=== PATIENT | female | born 1950 | race Caucasian/White ===

== ENCOUNTER 2024-01-19 14:07 | Emergency (ER) | payer MEDICARE, BC, SELFPAY ==
[2024-01-19] VITALS (8 sets, daily range): BP systolic 115–146; BP diastolic 63–84; BMI 33.9
--- NOTE | 2024-01-19 14:37 | ED.GENMED ---
History of Present Illness
<Vidhi Lua, JACK WINDER - Last Filed: 01/19/24 18:23>
General
Chief Complaint: Fever
Source: patient
Exam Limitations: none
Time Seen by Provider: 01/19/24 14:37
Nursing documentation reviewed up to this point in time: agreed with
Travel History
Have you had any contact with someone who has COVID-19?: No
Do you have any symptoms of coronavirus? Fever > 100 degrees, chills, cough, shortness of breath, sore throat, loss of taste or smell, muscle aches, or headache?: Yes
Symptoms:: see triage
History of Present Illness
History of Present Illness:
73-year-old female with history of HTN presents stating she has a cough, headache, body aches, fever, fatigue, back and joint pain, nausea but no vomiting, temperature between 90 9 AM 101 for past 3 days. She denies diarrhea. She has a roommate
that was sick for 3 days last week but tested negative for COVID. Patient tested negative for COVID 2 days ago.
Past History
<Vidhi Lua, JACK WINDER - Last Filed: 01/19/24 18:23>
Past History
ED Past Medical History: HTN, Hypercholesterolemia, Psychiatric (Anxiety) and Other (ITP, receives Nplate injection weekly)
ED Past Surgical History: Appendectomy, Gynecological and Orthopedic
Social History
Tobacco: Non-smoker
Alcohol: None
Drug: None
Personal:
Living: with roommate
Family History
Family History: CAD
Review of Systems
<Vidhi Lua, JACK WINDER - Last Filed: 01/19/24 18:23>
Review of Systems
Allergies reviewed?: Yes
All Other Systems: ROS reviewed and negative except as documented in HPI and ROS
Constitutional: Reports fever and fatigue
EENT: Denies sore throat
Respiratory: Reports cough
Cardiac: Denies chest pain
ABD/GI: Reports nausea; Denies abdominal pain, vomiting or diarrhea
: Reports incontinence (with coughing spells); Denies dysuria
Musculoskeletal: Reports other (general body aches); Denies edema
Skin: Reports no symptoms
Neurological: Reports dizzy and headache
Phy Exam
<Vidhi Lua, JACK WINDER - Last Filed: 01/19/24 18:23>
Physical Exam
Physical Exam:
GENERAL: No acute distress. A&Ox3.
CONSTITUTIONAL: Temperature 100.3
EYES: PERRL, conjunctivae normal
Neck: Supple
ENMT: moist mucus membranes, Pharynx nl
RESPIRATORY: Regular respirations, nonlabored, lungs with crackles both bases
CARDIOVASCULAR: Regular rate and rhythm, no murmurs, no rubs.
GI: Soft, nontender, normal BS
MUSCULOSKELETAL: Moves with ease. Well perfused.
SKIN: Warm, dry, pink
PSYCH: Normal mood and affect. Well kept, interactive and appropriate
NEUROLOGIC: Awake, alert and oriented. No focal neurological deficits
Course
<Vidhi Lua, JACK WINDER - Last Filed: 01/19/24 18:23>
Orders/Labs/Results
Orders:
Orders
01/19/24 14:39
COVID-19 Antigen Urgent
Source: Nasal Swab
Complete Blood Count/With Diff Urgent
Comprehensive Metabolic Panel Urgent
Influenza A+B Rapid Molecular Urgent
FELA Source: Nasal Swab
Specimen Description:
01/19/24 14:42
0.9% Sodium Chloride 1000 ml [Nss] 1,000 ml IV BOLUS
01/19/24 14:54
Acetaminophen [Tylenol] 1,000 mg PO NOW STA
01/19/24 15:44
CR Chest - 2 Views Urgent
Comment:
Reason For Exam: cough fever, neg covid and flu
01/19/24 16:06
Add On- LAB Urgent
Tests Added?: mono test
01/19/24 16:16
Monotest Routine
Comment: add-on
01/19/24 16:36
Urinalysis Reflex To Culture Urgent
Date Specimen was Collected: 01/19/24
Time Specimen was Collected: 16:34
Abnormal Lab Results
01/19/24 01/19/24
14:39 16:36
WBC 3.6 L 10^3/uL
(4.8-10.8)
MPV 10.5 H fL
(7.4-10.4)
Absolute Lymphs (auto) 0.8 L 10^3/uL
(1.2-3.4)
Monocytes % 10.8 H %
(1.7-9.3)
Sodium 132 L mmol/L
(135-145)
Glucose 104 H mg/dl
(70-99)
Calcium 8.3 L mg/dl
(8.4-10.2)
AST 37 H U/L
(14-36)
Urine Ketones 1+ A
(Negative)
01/19/24 14:39
01/19/24 14:39
Vital Signs
Initial and Last Documented VS:
Initial Vital Signs
Temp Pulse Resp BP Pulse Ox
100.3 F 125 18 118/84 96
01/19/24 14:15 01/19/24 14:15 01/19/24 14:15 01/19/24 14:15 01/19/24 14:15
Last Documented Vital Signs
Temp Pulse Resp BP Pulse Ox
100.5 F H 97 22 115/66 95
01/19/24 14:56 01/19/24 17:45 01/19/24 17:45 01/19/24 17:47 01/19/24 17:47
<Steph Valles MD - Last Filed: 01/19/24 16:05>
Orders/Labs/Results
Orders:
Orders
01/19/24 14:39
COVID-19 Antigen Urgent
Source: Nasal Swab
Complete Blood Count/With Diff Urgent
Comprehensive Metabolic Panel Urgent
Influenza A+B Rapid Molecular Urgent
FELA Source: Nasal Swab
Specimen Description:
01/19/24 14:42
0.9% Sodium Chloride 1000 ml [Nss] 1,000 ml IV BOLUS
01/19/24 14:54
Acetaminophen [Tylenol] 1,000 mg PO NOW STA
01/19/24 15:44
CR Chest - 2 Views Urgent
Comment:
Reason For Exam: cough fever, neg covid and flu
01/19/24 16:06
Add On- LAB Urgent
Tests Added?: mono test
01/19/24 16:16
Monotest Routine
Comment: add-on
01/19/24 16:36
Urinalysis Reflex To Culture Urgent
Date Specimen was Collected: 01/19/24
Time Specimen was Collected: 16:34
Abnormal Lab Results
01/19/24 01/19/24
14:39 16:36
WBC 3.6 L 10^3/uL
(4.8-10.8)
MPV 10.5 H fL
(7.4-10.4)
Absolute Lymphs (auto) 0.8 L 10^3/uL
(1.2-3.4)
Monocytes % 10.8 H %
(1.7-9.3)
Sodium 132 L mmol/L
(135-145)
Glucose 104 H mg/dl
(70-99)
Calcium 8.3 L mg/dl
(8.4-10.2)
AST 37 H U/L
(14-36)
Urine Ketones 1+ A
(Negative)
01/19/24 14:39
01/19/24 14:39
Vital Signs
Initial and Last Documented VS:
Initial Vital Signs
Temp Pulse Resp BP Pulse Ox
100.3 F 125 18 118/84 96
01/19/24 14:15 01/19/24 14:15 01/19/24 14:15 01/19/24 14:15 01/19/24 14:15
Last Documented Vital Signs
Temp Pulse Resp BP Pulse Ox
100.5 F H 97 22 115/66 95
01/19/24 14:56 01/19/24 17:45 01/19/24 17:45 01/19/24 17:47 01/19/24 17:47
<Vidhi Lua JACK WINDER - Last Filed: 01/19/24 18:23>
MDM/Problems Addressed
Differential Diagnosis Includes:
COVID, influenza, pneumonia
MDM/Problems Addressed:
73-year-old female with history of HTN presents stating she has a cough, headache, body aches, fever, fatigue, back and joint pain, nausea but no vomiting, temperature between 99 to 101 for past 3 days. She denies diarrhea. She has a roommate that
was sick for 3 days last week but tested negative for COVID. Patient tested negative for COVID 2 days ago.
Temperature 100.3
Appears as if she does not feel well but NAD
01/19/2024 1542 PM
CBC: WBCs 3.6 otherwise no clinically significant abnormality (most likely viral illness)
CMP: No clinically significant abnormality
COVID test is negative
Influenza A and B negative
UA negative
Case discussed with Dr. Valles who evaluated patient
01/19/2024 1744 PM
Monoscreen negative
Chest x-ray: Radiology report read: NAD
This is most likely viral illness
Plan: treat symptoms, f/u w PCP if not improving in next week
Chronic conditions affecting care: HTN
<Vidhi Lua NP - Last Filed: 01/19/24 18:23>
*Critical Care Note
Total Time (30-74mins, 75-104mins- exclusive of procedures): Not Applicable
ED Attending Note
<Vidhi Lua NP - Last Filed: 01/19/24 18:23>
-
Portions of this chart may have been created with voice recognition software.� Occasional wrong word or��sound alike� substitutions may have occurred due to the inherent limitations of voice recognition software.
<Steph Valles MD - Last Filed: 01/19/24 16:05>
ED Attending Note
Patient seen and examined by attending physician: Yes
I performed the substantive portion of visit, reviewed & personally made and approve the management plan that is documented in note by myself or JACKSON.: Yes
ED Attending Note:
Patient appears nontoxic but reports fever, fatigue, and cough. There is no sign of meningitis. Lungs are clear. She is breathing comfortably. I will add on a monotest.
Discharge Plan
Departure
Patient Disposition: Home (Routine Discharge)
Date of Disposition: 01/19/24
Time of Disposition: 17:50
Patient with high blood pressure during this ER visit?: No
Condition: Fair
Covid-19: Negative COVID-19
Discharge Problem:
Viral upper respiratory illness
Instructions: Fever, Adult (DC), Viral Syndrome (DC)
Prescriptions:
No Action
diphenhydramine-acetaminophen [Tylenol PM Extra Strength] 25-500 mg Tablet
1 tab PO HS PRN (Reason: insomnia)
omeprazole magnesium [Prilosec OTC] 20 mg Tablet,Delayed Release (Dr/Ec)
20 mg PO BIDPRN PRN (Reason: indigestion)
Referrals:
Amada Sage MD [Family Provider] - As needed
Activity Restrictions/Additional Instructions:
As we discussed, your workup here today shows nothing worrisome.
Your white blood cell count is a little low, this is most likely due to a viral illness.
Your urine shows no sign of infection.
Your monotest is negative
Your COVID and influenza tests are negative
Your chest x-ray is normal
Drink at least eight 8 ounce glasses of fluid daily to stay hydrated.
Tylenol or ibuprofen as needed for fever, aches or pains
See your doctor in 1 week if you are not much improved by then.
Interventions
Interventions:
*Risk Screen - Suicide Last Done: 01/19/24 14:37
*General Assessment Last Done: 01/19/24 14:15
*Neglect/Abuse Screening Last Done: 01/19/24 14:37
ED- Fall Risk Assessment Last Done: 01/19/24 14:37
*ED COVID-19 Vaccine History Last Done: 01/19/24 14:15
*Nursing Disposition Last Done: 01/19/24 18:01
ED- Neurological Assessment Last Done: 01/19/24 15:28
ED-Skin Assessment Last Done: 01/19/24 15:28
Discharge Date and Time
Discharge Date/Time: 01/19/24 18:05
[2024-01-19] MEDS: NSS 1000 IV (14:45)
[2024-01-19 15:07] LABS: % Basophils 0.8 % (0-2); % Eosinophils 1.9 % (0-6); % Lymphocytes 20.8 % (20.5-51.1); % Monocytes 10.8 % (1.7-9.3); % Neutrophils 65.7 % (42.2-75.2); Absolute Eosinophils 0.1 10^3/uL (0-0.7); Absolute Lymphocytes 0.8 10^3/uL (1.2-3.4); Absolute Monocytes 0.4 10^3/uL (0.1-0.6); Absolute Neutrophils 2.4 10^3/uL (1.4-6.5); Hematocrit 38.6 % (37.0-47.0); Hemoglobin 13.8 g/dL (12.0-16.0); Mean Corp Hgb Conc. 35.8 g/dL (33.0-37.0); Mean Corpuscular Hgb 29.8 pg (27.0-31.0); Mean Corpuscular Volume 83.4 fL (81.0-99.0); Mean Platelet Volume 10.5 fL (7.4-10.4); Nucleated Red Blood Cells % 0 %; Platelet Count 141 10^3/uL (130-400); Red Blood Cell Count 4.63 10^6/uL (4.20-5.40); White Blood Cell Count 3.6 10^3/uL (4.8-10.8)
[2024-01-19] MEDS: TYLENOL 1000 MG PO (15:08)
[2024-01-19 15:19] LABS: ALT (SGPT) 20 U/L (0-35); AST (SGOT) 37 U/L (14-36); Albumin 3.9 g/dl (3.5-5.0); Alkaline Phosphatase 59 U/L (38-126); Blood Urea Nitrogen 10 mg/dl (7-17); Calcium 8.3 mg/dl (8.4-10.2); Carbon Dioxide 28 mmol/L (22-30); Chloride 101 mmol/L (98-107); Estimated Creatinine Clearance 76 ml/min; Glucose 104 mg/dl (70-99); Potassium 3.5 mmol/L (3.5-5.1); Sodium 132 mmol/L (135-145); Total Bilirubin 0.6 mg/dl (0.2-1.3); Total Protein 6.7 g/dl (6.3-8.2); eGFR > 60.00
[2024-01-19 15:37] LABS: COVID-19 Antigen Negative (Negative)
[2024-01-19 16:47] LABS: Urine Albumin Negative (Neg - Trace); Urine Bilirubin Negative (Negative); Urine Character Clear (Clear); Urine Color Yellow; Urine Glucose Negative (Negative); Urine Ketone 1+ (Negative); Urine Leukocyte Negative (Negative); Urine Nitrite Negative (Negative); Urine Occult Blood Negative (Negative); Urine Urobilinogen Negative (Neg - 1+); Urine pH 6.5 (5.0-9.0)
[2024-01-19 17:05] LABS: Monotest Negative (Negative)
== END 2024-01-19 18:05 | disposition home or self-care (01) ==
LOC: EMR 14:07
PROVIDERS: Registered Nurse; EMERGENCY PHYSICIAN Emergency Medicine; FAMILY PHYSICIAN Family Medicine
DX: B34.9 Viral infection, unspecified (principal); R51.9 Headache, unspecified; R11.0 Nausea; R42 Dizziness and giddiness; M54.50 Low back pain, unspecified; Z11.52 Encounter for screening for COVID-19; I10 Essential (primary) hypertension; E78.00 Pure hypercholesterolemia, unspecified; F41.9 Anxiety disorder, unspecified; D69.3 Immune thrombocytopenic purpura; Z88.6 Allergy status to analgesic agent; Z88.8 Allergy status to other drugs, medicaments and biological substances
CPT/HCPCS: 99284; 96360; 96361; 71046; 80053; 81003; 85025; 86308; 87502; 87811

== ENCOUNTER → 2024-04-06 16:18 | Outpatient (REF) | payer MEDICARE, BC, SELFPAY ==
[2024-04-07 19:59] LABS: Urine Albumin Negative (Neg - Trace); Urine Bilirubin Negative (Negative); Urine Character Slightly Cloudy (Clear); Urine Color Yellow; Urine Glucose Negative (Negative); Urine Ketone Negative (Negative); Urine Leukocyte Trace (Negative); Urine Nitrite Negative (Negative); Urine Occult Blood Negative (Negative); Urine Specific Gravity 1.025 (<1.030); Urine Urobilinogen Negative (Neg - 1+)
[2024-04-07 20:10] LABS: Urine Bacteria Many (Negative); Urine Red Blood Cell 0-2 /HPF (0-2); Urine Squamous Cell 26-30 /LPF (Few); Urine White Cell 0-2 /HPF (0-5)
== END ==
LOC: CLAB 16:18
PROVIDERS: ATTENDING PHYSICIAN Urology
DX: R31.29 Other microscopic hematuria (principal)
CPT/HCPCS: 81003; 81015; 87077; 87086

== ENCOUNTER → 2024-04-08 11:02 | Outpatient (REF) | payer MEDICARE, BC, SELFPAY ==
[2024-04-08 12:42] LABS: Blood Urea Nitrogen 20 mg/dl (7-17); Calcium 9.5 mg/dl (8.4-10.2); Carbon Dioxide 26 mmol/L (22-30); Chloride 103 mmol/L (98-107); Glucose 82 mg/dl (70-99); Potassium 4.6 mmol/L (3.5-5.1); Sodium 139 mmol/L (135-145); eGFR > 60.00
== END ==
LOC: WDC 11:02
PROVIDERS: ATTENDING PHYSICIAN Family Medicine; FAMILY PHYSICIAN Urology
DX: R31.29 Other microscopic hematuria (principal); Z12.31 Encounter for screening mammogram for malignant neoplasm of breast
CPT/HCPCS: 36415; 77063; 77067; 80048

== ENCOUNTER → 2024-04-10 13:51 | Outpatient (REF) | payer MEDICARE, BC, SELFPAY | LOC: RAD 13:51 | PROVIDERS: ATTENDING PHYSICIAN Urology; FAMILY PHYSICIAN Family Medicine | DX: R31.29 Other microscopic hematuria (principal) | CPT/HCPCS: 74178; Q9967 ==

== ENCOUNTER → 2024-06-15 06:51 | Outpatient (REF) | payer MEDICARE, BC, SELFPAY ==
[2024-06-15 08:05] LABS: % Basophils 1.1 % (0-2); % Eosinophils 4.4 % (0-6); % Immature Granulocytes 0.2 % (0-0.5); % Lymphocytes 26.7 % (20.5-51.1); % Monocytes 8.8 % (1.7-9.3); % Neutrophils 58.8 % (42.2-75.2); Absolute Basophils 0.1 10^3/uL (0-0.2); Absolute Eosinophils 0.2 10^3/uL (0-0.7); Absolute Lymphocytes 1.2 10^3/uL (1.2-3.4); Absolute Monocytes 0.4 10^3/uL (0.1-0.6); Absolute Neutrophils 2.7 10^3/uL (1.4-6.5); Hematocrit 37.4 % (37.0-47.0); Hemoglobin 12.5 g/dL (12.0-16.0); Mean Corp Hgb Conc. 33.4 g/dL (33.0-37.0); Mean Corpuscular Hgb 29.3 pg (27.0-31.0); Mean Corpuscular Volume 87.8 fL (81.0-99.0); Mean Platelet Volume 11.5 fL (7.4-10.4); Nucleated Red Blood Cells % 0 %; Platelet Count 160 10^3/uL (130-400); Red Blood Cell Count 4.26 10^6/uL (4.20-5.40); Red Cell Dist. Width 12.8 % (11.5-14.5); White Blood Cell Count 4.5 10^3/uL (4.8-10.8)
[2024-06-15 08:23] LABS: ALT (SGPT) 400 U/L (0-35); AST (SGOT) 278 U/L (14-36); Albumin 3.8 g/dl (3.5-5.0); Alkaline Phosphatase 59 U/L (38-126); Blood Urea Nitrogen 17 mg/dl (7-17); Calcium 8.8 mg/dl (8.4-10.2); Carbon Dioxide 28 mmol/L (22-30); Chloride 106 mmol/L (98-107); Glucose 85 mg/dl (70-99); HDL Cholesterol 71 mg/dl; LDL Cholesterol, Calculated 96 mg/dl; Potassium 4.2 mmol/L (3.5-5.1); Sodium 141 mmol/L (135-145); Total Bilirubin 0.5 mg/dl (0.2-1.3); Total Cholesterol 175 mg/dl (50-199); Total Protein 6.3 g/dl (6.3-8.2); Triglyceride 44 mg/dl (10-149); Very Low Density Lipoprotein 8 mg/dl (0-30); eGFR > 60.00
[2024-06-15 08:50] LABS: TSH 2.21 uIU/ml (0.47-4.68)
== END ==
LOC: REG 06:51
PROVIDERS: ATTENDING PHYSICIAN Internal Medicine Hematology & Oncology; FAMILY PHYSICIAN Family Medicine
DX: I10 Essential (primary) hypertension (principal); E78.2 Mixed hyperlipidemia; D69.3 Immune thrombocytopenic purpura; R73.09 Other abnormal glucose
CPT/HCPCS: 36415; 80053; 80061; 83036; 84443; 85025

== ENCOUNTER → 2024-06-22 07:51 | Outpatient (REF) | payer MEDICARE, BC, SELFPAY ==
[2024-06-22 09:40] LABS: ALT (SGPT) 331 U/L (0-35); AST (SGOT) 201 U/L (14-36); Albumin 4.4 g/dl (3.5-5.0); Alkaline Phosphatase 60 U/L (38-126); Blood Urea Nitrogen 22 mg/dl (7-17); Calcium 9.7 mg/dl (8.4-10.2); Carbon Dioxide 30 mmol/L (22-30); Chloride 105 mmol/L (98-107); Glucose 80 mg/dl (70-99); Sodium 138 mmol/L (135-145); Total Bilirubin 0.6 mg/dl (0.2-1.3); eGFR > 60.00
== END ==
LOC: REG 07:51
PROVIDERS: ATTENDING PHYSICIAN Nurse Practitioner Family; FAMILY PHYSICIAN Family Medicine
DX: D69.3 Immune thrombocytopenic purpura (principal); R74.01 Elevation of levels of liver transaminase levels
CPT/HCPCS: 36415; 80053

== ENCOUNTER → 2024-06-29 08:26 | Outpatient (REF) | payer MEDICARE, BC, SELFPAY ==
[2024-06-29 09:25] LABS: % Basophils 1.2 % (0-2); % Eosinophils 3.5 % (0-6); % Immature Granulocytes 0.2 % (0-0.5); % Lymphocytes 29.8 % (20.5-51.1); % Monocytes 8.9 % (1.7-9.3); % Neutrophils 56.4 % (42.2-75.2); Absolute Basophils 0.1 10^3/uL (0-0.2); Absolute Eosinophils 0.1 10^3/uL (0-0.7); Absolute Lymphocytes 1.2 10^3/uL (1.2-3.4); Absolute Monocytes 0.4 10^3/uL (0.1-0.6); Absolute Neutrophils 2.3 10^3/uL (1.4-6.5); Hematocrit 38.4 % (37.0-47.0); Hemoglobin 13.4 g/dL (12.0-16.0); Mean Corp Hgb Conc. 34.9 g/dL (33.0-37.0); Mean Corpuscular Hgb 30.5 pg (27.0-31.0); Mean Corpuscular Volume 87.5 fL (81.0-99.0); Mean Platelet Volume 12.3 fL (7.4-10.4); Nucleated Red Blood Cells % 0 %; Platelet Count 101 10^3/uL (130-400); Red Blood Cell Count 4.39 10^6/uL (4.20-5.40); Red Cell Dist. Width 12.4 % (11.5-14.5)
[2024-06-29 10:39] LABS: ALT (SGPT) 201 U/L (0-35); AST (SGOT) 127 U/L (14-36); Albumin 4.1 g/dl (3.5-5.0); Alkaline Phosphatase 55 U/L (38-126); Blood Urea Nitrogen 17 mg/dl (7-17); Carbon Dioxide 26 mmol/L (22-30); Chloride 106 mmol/L (98-107); Glucose 81 mg/dl (70-99); Potassium 4.3 mmol/L (3.5-5.1); Sodium 139 mmol/L (135-145); Total Bilirubin 0.6 mg/dl (0.2-1.3); Total Protein 6.5 g/dl (6.3-8.2); eGFR > 60.00
== END ==
LOC: REG 08:26
PROVIDERS: ATTENDING PHYSICIAN Internal Medicine Hematology & Oncology; FAMILY PHYSICIAN Family Medicine
DX: D69.3 Immune thrombocytopenic purpura (principal); R74.01 Elevation of levels of liver transaminase levels
CPT/HCPCS: 36415; 80053; 85025

== ENCOUNTER → 2024-07-23 11:47 | Outpatient (REF) | payer MEDICARE, BC, SELFPAY ==
[2024-07-23 16:08] LABS: ALT (SGPT) 83 U/L (0-35); AST (SGOT) 66 U/L (14-36); Albumin 4.1 g/dl (3.5-5.0); Alkaline Phosphatase 59 U/L (38-126); Direct Bilirubin 0.2 mg/dl (0.0-0.4); Total Bilirubin 0.7 mg/dl (0.2-1.3); Total Protein 6.7 g/dl (6.3-8.2)
== END ==
LOC: HWLAB 11:47
PROVIDERS: ATTENDING PHYSICIAN Family Medicine
DX: R79.89 Other specified abnormal findings of blood chemistry (principal)
CPT/HCPCS: 36415; 80076

== ENCOUNTER → 2024-07-30 11:17 | Outpatient (REF) | payer MEDICARE, BC, SELFPAY | LOC: HWRAD 11:17 | PROVIDERS: ATTENDING PHYSICIAN Family Medicine | DX: R79.89 Other specified abnormal findings of blood chemistry (principal) | CPT/HCPCS: 76700 ==

== ENCOUNTER → 2024-08-03 11:00 | Outpatient (REF) | payer MEDICARE, BC, SELFPAY ==
[2024-08-03 11:48] LABS: % Basophils 1.2 % (0-2); % Eosinophils 5.7 % (0-6); % Immature Granulocytes 0.4 % (0-0.5); % Lymphocytes 31.4 % (20.5-51.1); % Monocytes 8.8 % (1.7-9.3); % Neutrophils 52.5 % (42.2-75.2); Absolute Basophils 0.1 10^3/uL (0-0.2); Absolute Eosinophils 0.3 10^3/uL (0-0.7); Absolute Lymphocytes 1.5 10^3/uL (1.2-3.4); Absolute Monocytes 0.4 10^3/uL (0.1-0.6); Absolute Neutrophils 2.6 10^3/uL (1.4-6.5); Hemoglobin 13.5 g/dL (12.0-16.0); Mean Corp Hgb Conc. 33.8 g/dL (33.0-37.0); Mean Corpuscular Hgb 29.4 pg (27.0-31.0); Mean Corpuscular Volume 87.1 fL (81.0-99.0); Nucleated Red Blood Cells % 0 %; Platelet Count 135 10^3/uL (130-400); Red Blood Cell Count 4.59 10^6/uL (4.20-5.40); Red Cell Dist. Width 12.6 % (11.5-14.5); White Blood Cell Count 4.9 10^3/uL (4.8-10.8)
[2024-08-03 12:20] LABS: ALT (SGPT) 63 U/L (0-35); AST (SGOT) 57 U/L (14-36); Albumin 4.4 g/dl (3.5-5.0); Alkaline Phosphatase 62 U/L (38-126); Blood Urea Nitrogen 18 mg/dl (7-17); Calcium 9.4 mg/dl (8.4-10.2); Carbon Dioxide 26 mmol/L (22-30); Chloride 104 mmol/L (98-107); Glucose 86 mg/dl (70-99); Potassium 4.4 mmol/L (3.5-5.1); Sodium 142 mmol/L (135-145); Total Bilirubin 0.8 mg/dl (0.2-1.3); eGFR > 60.00
== END ==
LOC: REG 11:00
PROVIDERS: ATTENDING PHYSICIAN Internal Medicine Hematology & Oncology; FAMILY PHYSICIAN Family Medicine
DX: D69.3 Immune thrombocytopenic purpura (principal); R74.01 Elevation of levels of liver transaminase levels
CPT/HCPCS: 36415; 80053; 85025

== ENCOUNTER → 2024-08-17 11:22 | Outpatient (REF) | payer MEDICARE, BC, SELFPAY ==
[2024-08-17 12:49] LABS: % Basophils 1.1 % (0-2); % Eosinophils 5.4 % (0-6); % Immature Granulocytes 0.2 % (0-0.5); % Lymphocytes 30.1 % (20.5-51.1); % Monocytes 8.1 % (1.7-9.3); % Neutrophils 55.1 % (42.2-75.2); Absolute Basophils 0.1 10^3/uL (0-0.2); Absolute Eosinophils 0.2 10^3/uL (0-0.7); Absolute Lymphocytes 1.3 10^3/uL (1.2-3.4); Absolute Monocytes 0.4 10^3/uL (0.1-0.6); Absolute Neutrophils 2.5 10^3/uL (1.4-6.5); Hematocrit 40.8 % (37.0-47.0); Hemoglobin 13.7 g/dL (12.0-16.0); Mean Corp Hgb Conc. 33.6 g/dL (33.0-37.0); Mean Corpuscular Hgb 29.9 pg (27.0-31.0); Mean Corpuscular Volume 89.1 fL (81.0-99.0); Mean Platelet Volume 12.6 fL (7.4-10.4); Nucleated Red Blood Cells % 0 %; Platelet Count 98 10^3/uL (130-400); Red Blood Cell Count 4.58 10^6/uL (4.20-5.40); Red Cell Dist. Width 12.8 % (11.5-14.5); White Blood Cell Count 4.5 10^3/uL (4.8-10.8)
[2024-08-17 12:59] LABS: ALT (SGPT) 51 U/L (0-35); AST (SGOT) 51 U/L (14-36); Albumin 4.3 g/dl (3.5-5.0); Alkaline Phosphatase 62 U/L (38-126); Blood Urea Nitrogen 15 mg/dl (7-17); Calcium 9.2 mg/dl (8.4-10.2); Carbon Dioxide 29 mmol/L (22-30); Chloride 102 mmol/L (98-107); Glucose 83 mg/dl (70-99); Potassium 4.4 mmol/L (3.5-5.1); Sodium 141 mmol/L (135-145); Total Bilirubin 0.6 mg/dl (0.2-1.3); eGFR > 60.00
== END ==
LOC: REG 11:22
PROVIDERS: ATTENDING PHYSICIAN Internal Medicine Hematology & Oncology; FAMILY PHYSICIAN Family Medicine
DX: D69.3 Immune thrombocytopenic purpura (principal); R74.01 Elevation of levels of liver transaminase levels
CPT/HCPCS: 36415; 80053; 85025

== ENCOUNTER → 2024-09-08 11:17 | Outpatient (REF) | payer MEDICARE, BC, SELFPAY ==
[2024-09-08 12:07] LABS: % Basophils 1.3 % (0-2); % Eosinophils 4.2 % (0-6); % Immature Granulocytes 0.2 % (0-0.5); % Lymphocytes 27.9 % (20.5-51.1); % Monocytes 8.6 % (1.7-9.3); % Neutrophils 57.8 % (42.2-75.2); Absolute Basophils 0.1 10^3/uL (0-0.2); Absolute Eosinophils 0.2 10^3/uL (0-0.7); Absolute Lymphocytes 1.5 10^3/uL (1.2-3.4); Absolute Monocytes 0.5 10^3/uL (0.1-0.6); Hematocrit 38.6 % (37.0-47.0); Hemoglobin 12.9 g/dL (12.0-16.0); Mean Corp Hgb Conc. 33.4 g/dL (33.0-37.0); Mean Corpuscular Hgb 29.2 pg (27.0-31.0); Mean Corpuscular Volume 87.3 fL (81.0-99.0); Nucleated Red Blood Cells % 0 %; Platelet Count 111 10^3/uL (130-400); Red Blood Cell Count 4.42 10^6/uL (4.20-5.40); Red Cell Dist. Width 13.1 % (11.5-14.5); White Blood Cell Count 5.2 10^3/uL (4.8-10.8)
[2024-09-08 12:46] LABS: ALT (SGPT) 48 U/L (0-35); AST (SGOT) 51 U/L (14-36); Albumin 4.1 g/dl (3.5-5.0); Alkaline Phosphatase 59 U/L (38-126); Blood Urea Nitrogen 17 mg/dl (7-17); Calcium 8.9 mg/dl (8.4-10.2); Carbon Dioxide 27 mmol/L (22-30); Chloride 106 mmol/L (98-107); Glucose 83 mg/dl (70-99); Potassium 4.4 mmol/L (3.5-5.1); Sodium 142 mmol/L (135-145); Total Bilirubin 0.4 mg/dl (0.2-1.3); Total Protein 6.7 g/dl (6.3-8.2); eGFR > 60.00
== END ==
LOC: REG 11:17
PROVIDERS: ATTENDING PHYSICIAN Internal Medicine Hematology & Oncology; FAMILY PHYSICIAN Family Medicine
DX: D69.3 Immune thrombocytopenic purpura (principal); R74.01 Elevation of levels of liver transaminase levels
CPT/HCPCS: 36415; 80053; 85025

== ENCOUNTER → 2024-09-22 11:01 | Outpatient (REF) | payer MEDICARE, BC, SELFPAY ==
[2024-09-22 12:03] LABS: % Basophils 1.8 % (0-2); % Eosinophils 4.2 % (0-6); % Immature Granulocytes 0.2 % (0-0.5); % Lymphocytes 26.6 % (20.5-51.1); % Monocytes 8.8 % (1.7-9.3); % Neutrophils 58.4 % (42.2-75.2); Absolute Basophils 0.1 10^3/uL (0-0.2); Absolute Eosinophils 0.2 10^3/uL (0-0.7); Absolute Lymphocytes 1.2 10^3/uL (1.2-3.4); Absolute Monocytes 0.4 10^3/uL (0.1-0.6); Absolute Neutrophils 2.7 10^3/uL (1.4-6.5); Hemoglobin 13.5 g/dL (12.0-16.0); Mean Corp Hgb Conc. 33.8 g/dL (33.0-37.0); Mean Corpuscular Hgb 29.2 pg (27.0-31.0); Mean Corpuscular Volume 86.4 fL (81.0-99.0); Mean Platelet Volume 11.5 fL (7.4-10.4); Nucleated Red Blood Cells % 0 %; Platelet Count 126 10^3/uL (130-400); Red Blood Cell Count 4.63 10^6/uL (4.20-5.40); Red Cell Dist. Width 12.7 % (11.5-14.5); White Blood Cell Count 4.6 10^3/uL (4.8-10.8)
[2024-09-22 12:22] LABS: ALT (SGPT) 34 U/L (0-35); AST (SGOT) 40 U/L (14-36); Albumin 4.1 g/dl (3.5-5.0); Alkaline Phosphatase 60 U/L (38-126); Blood Urea Nitrogen 13 mg/dl (7-17); Calcium 9.2 mg/dl (8.4-10.2); Carbon Dioxide 29 mmol/L (22-30); Chloride 102 mmol/L (98-107); Glucose 85 mg/dl (70-99); Potassium 4.6 mmol/L (3.5-5.1); Sodium 139 mmol/L (135-145); Total Bilirubin 0.6 mg/dl (0.2-1.3); Total Protein 6.9 g/dl (6.3-8.2); eGFR > 60.00
== END ==
LOC: REG 11:01
PROVIDERS: ATTENDING PHYSICIAN Internal Medicine Hematology & Oncology; FAMILY PHYSICIAN Family Medicine
DX: D69.3 Immune thrombocytopenic purpura (principal); R74.01 Elevation of levels of liver transaminase levels
CPT/HCPCS: 36415; 80053; 85025

== ENCOUNTER → 2024-10-12 12:05 | Outpatient (REF) | payer MEDICARE, BC, SELFPAY ==
[2024-10-12 13:21] LABS: Urine Albumin Negative (Neg - Trace); Urine Bilirubin Negative (Negative); Urine Character Clear (Clear); Urine Color Yellow; Urine Glucose Negative (Negative); Urine Ketone Negative (Negative); Urine Leukocyte Negative (Negative); Urine Nitrite Negative (Negative); Urine Occult Blood Negative (Negative); Urine Urobilinogen Negative (Neg - 1+); Urine pH 6.5 (5.0-9.0)
[2024-10-12 13:47] LABS: % Basophils 1.4 % (0-2); % Eosinophils 4.3 % (0-6); % Immature Granulocytes 0.2 % (0-0.5); % Lymphocytes 28.7 % (20.5-51.1); % Monocytes 9.3 % (1.7-9.3); % Neutrophils 56.1 % (42.2-75.2); Absolute Basophils 0.1 10^3/uL (0-0.2); Absolute Eosinophils 0.2 10^3/uL (0-0.7); Absolute Lymphocytes 1.2 10^3/uL (1.2-3.4); Absolute Monocytes 0.4 10^3/uL (0.1-0.6); Absolute Neutrophils 2.4 10^3/uL (1.4-6.5); Hematocrit 37.3 % (37.0-47.0); Hemoglobin 12.5 g/dL (12.0-16.0); Mean Corp Hgb Conc. 33.5 g/dL (33.0-37.0); Mean Corpuscular Hgb 30.3 pg (27.0-31.0); Mean Corpuscular Volume 90.5 fL (81.0-99.0); Mean Platelet Volume 12.2 fL (7.4-10.4); Nucleated Red Blood Cells % 0 %; Platelet Count 115 10^3/uL (130-400); Red Blood Cell Count 4.12 10^6/uL (4.20-5.40); Red Cell Dist. Width 12.5 % (11.5-14.5); White Blood Cell Count 4.2 10^3/uL (4.8-10.8)
[2024-10-12 14:33] LABS: ALT (SGPT) 35 U/L (0-35); AST (SGOT) 47 U/L (14-36); Albumin 3.8 g/dl (3.5-5.0); Alkaline Phosphatase 53 U/L (38-126); Blood Urea Nitrogen 10 mg/dl (7-17); Calcium 8.9 mg/dl (8.4-10.2); Carbon Dioxide 28 mmol/L (22-30); Chloride 104 mmol/L (98-107); Glucose 83 mg/dl (70-99); Potassium 4.2 mmol/L (3.5-5.1); Sodium 142 mmol/L (135-145); Total Bilirubin 0.3 mg/dl (0.2-1.3); Total Protein 6.5 g/dl (6.3-8.2); eGFR > 60.00
== END ==
LOC: REG 12:05
PROVIDERS: ATTENDING PHYSICIAN Family Medicine; REFERRING PHYSICIAN Internal Medicine Hematology & Oncology
DX: R39.9 Unspecified symptoms and signs involving the genitourinary system (principal); D69.1 Qualitative platelet defects; D69.3 Immune thrombocytopenic purpura; R74.01 Elevation of levels of liver transaminase levels
CPT/HCPCS: 36415; 80053; 81003; 85025; 87086

== ENCOUNTER → 2024-10-26 12:44 | Outpatient (REF) | payer MEDICARE, BC, SELFPAY ==
[2024-10-26 13:50] LABS: % Basophils 1.2 % (0-2); % Eosinophils 3.9 % (0-6); % Immature Granulocytes 0.2 % (0-0.5); % Lymphocytes 30.6 % (20.5-51.1); % Monocytes 7.3 % (1.7-9.3); % Neutrophils 56.8 % (42.2-75.2); Absolute Basophils 0.1 10^3/uL (0-0.2); Absolute Eosinophils 0.2 10^3/uL (0-0.7); Absolute Lymphocytes 1.5 10^3/uL (1.2-3.4); Absolute Monocytes 0.4 10^3/uL (0.1-0.6); Absolute Neutrophils 2.8 10^3/uL (1.4-6.5); Hematocrit 39.3 % (37.0-47.0); Hemoglobin 13.3 g/dL (12.0-16.0); Mean Corp Hgb Conc. 33.8 g/dL (33.0-37.0); Mean Corpuscular Volume 88.5 fL (81.0-99.0); Nucleated Red Blood Cells % 0 %; Platelet Count 123 10^3/uL (130-400); Red Blood Cell Count 4.44 10^6/uL (4.20-5.40); Red Cell Dist. Width 12.7 % (11.5-14.5); White Blood Cell Count 4.9 10^3/uL (4.8-10.8)
== END ==
LOC: REG 12:44
PROVIDERS: ATTENDING PHYSICIAN Internal Medicine Hematology & Oncology; FAMILY PHYSICIAN Family Medicine
DX: D69.3 Immune thrombocytopenic purpura (principal); R74.01 Elevation of levels of liver transaminase levels
CPT/HCPCS: 36415; 85025

== ENCOUNTER → 2024-11-13 11:13 | Outpatient (REF) | payer MEDICARE, BC, SELFPAY ==
[2024-11-13 12:20] LABS: % Eosinophils 4.7 % (0-6); % Immature Granulocytes 0.2 % (0-0.5); % Lymphocytes 27.7 % (20.5-51.1); % Monocytes 8.2 % (1.7-9.3); % Neutrophils 58.2 % (42.2-75.2); Absolute Basophils 0.1 10^3/uL (0-0.2); Absolute Eosinophils 0.2 10^3/uL (0-0.7); Absolute Lymphocytes 1.4 10^3/uL (1.2-3.4); Absolute Monocytes 0.4 10^3/uL (0.1-0.6); Hematocrit 39.1 % (37.0-47.0); Hemoglobin 13.2 g/dL (12.0-16.0); Mean Corp Hgb Conc. 33.8 g/dL (33.0-37.0); Mean Corpuscular Hgb 29.7 pg (27.0-31.0); Mean Corpuscular Volume 88.1 fL (81.0-99.0); Nucleated Red Blood Cells % 0 %; Red Blood Cell Count 4.44 10^6/uL (4.20-5.40); Red Cell Dist. Width 12.3 % (11.5-14.5); White Blood Cell Count 5.1 10^3/uL (4.8-10.8)
[2024-11-13 12:24] LABS: ALT (SGPT) 25 U/L (0-35); AST (SGOT) 33 U/L (14-36); Albumin 4.1 g/dl (3.5-5.0); Alkaline Phosphatase 48 U/L (38-126); Blood Urea Nitrogen 16 mg/dl (7-17); Calcium 9.1 mg/dl (8.4-10.2); Carbon Dioxide 29 mmol/L (22-30); Chloride 101 mmol/L (98-107); Glucose 89 mg/dl (70-99); Potassium 4.5 mmol/L (3.5-5.1); Sodium 134 mmol/L (135-145); Total Bilirubin 0.3 mg/dl (0.2-1.3); Total Protein 6.7 g/dl (6.3-8.2); eGFR > 60.00
[2024-11-13 14:42] LABS: Mean Platelet Volume 12.3 fL (7.4-10.4); Platelet Count 83 10^3/uL (130-400)
== END ==
LOC: REG 11:13
PROVIDERS: ATTENDING PHYSICIAN Internal Medicine Hematology & Oncology; FAMILY PHYSICIAN Family Medicine
DX: D69.3 Immune thrombocytopenic purpura (principal); R74.01 Elevation of levels of liver transaminase levels
CPT/HCPCS: 36415; 80053; 85025

== ENCOUNTER → 2024-11-27 11:10 | Outpatient (REF) | payer MEDICARE, BC, SELFPAY ==
[2024-11-27 12:16] LABS: % Basophils 1.2 % (0-2); % Eosinophils 3.7 % (0-6); % Immature Granulocytes 0.2 % (0-0.5); % Lymphocytes 31.7 % (20.5-51.1); % Neutrophils 55.2 % (42.2-75.2); Absolute Basophils 0.1 10^3/uL (0-0.2); Absolute Eosinophils 0.2 10^3/uL (0-0.7); Absolute Lymphocytes 1.3 10^3/uL (1.2-3.4); Absolute Monocytes 0.3 10^3/uL (0.1-0.6); Absolute Neutrophils 2.3 10^3/uL (1.4-6.5); Hematocrit 38.9 % (37.0-47.0); Hemoglobin 13.2 g/dL (12.0-16.0); Mean Corp Hgb Conc. 33.9 g/dL (33.0-37.0); Mean Corpuscular Hgb 30.2 pg (27.0-31.0); Mean Platelet Volume 11.2 fL (7.4-10.4); Nucleated Red Blood Cells % 0 %; Platelet Count 161 10^3/uL (130-400); Red Blood Cell Count 4.37 10^6/uL (4.20-5.40); Red Cell Dist. Width 12.5 % (11.5-14.5); White Blood Cell Count 4.1 10^3/uL (4.8-10.8)
[2024-11-27 16:07] LABS: ALT (SGPT) 18 U/L (0-35); AST (SGOT) 30 U/L (14-36); Albumin 3.8 g/dl (3.5-5.0); Alkaline Phosphatase 53 U/L (38-126); Blood Urea Nitrogen 14 mg/dl (7-17); Calcium 8.8 mg/dl (8.4-10.2); Carbon Dioxide 32 mmol/L (22-30); Chloride 104 mmol/L (98-107); Glucose 84 mg/dl (70-99); Potassium 4.3 mmol/L (3.5-5.1); Sodium 141 mmol/L (135-145); Total Bilirubin 0.5 mg/dl (0.2-1.3); Total Protein 6.5 g/dl (6.3-8.2); eGFR > 60.00
== END ==
LOC: REG 11:10
PROVIDERS: ATTENDING PHYSICIAN Internal Medicine Hematology & Oncology; FAMILY PHYSICIAN Family Medicine
DX: D69.3 Immune thrombocytopenic purpura (principal); R74.01 Elevation of levels of liver transaminase levels
CPT/HCPCS: 36415; 80053; 85025

== ENCOUNTER → 2024-12-11 12:18 | Outpatient (REF) | payer MEDICARE, BC, SELFPAY ==
[2024-12-11 13:13] LABS: % Basophils 1.1 % (0-2); % Eosinophils 2.7 % (0-6); % Monocytes 7.3 % (1.7-9.3); % Neutrophils 56.9 % (42.2-75.2); Absolute Basophils 0.1 10^3/uL (0-0.2); Absolute Eosinophils 0.1 10^3/uL (0-0.7); Absolute Lymphocytes 1.4 10^3/uL (1.2-3.4); Absolute Monocytes 0.3 10^3/uL (0.1-0.6); Absolute Neutrophils 2.5 10^3/uL (1.4-6.5); Hematocrit 40.8 % (37.0-47.0); Hemoglobin 13.7 g/dL (12.0-16.0); Mean Corp Hgb Conc. 33.6 g/dL (33.0-37.0); Mean Corpuscular Hgb 29.6 pg (27.0-31.0); Mean Corpuscular Volume 88.1 fL (81.0-99.0); Nucleated Red Blood Cells % 0 %; Red Blood Cell Count 4.63 10^6/uL (4.20-5.40); Red Cell Dist. Width 12.3 % (11.5-14.5); White Blood Cell Count 4.4 10^3/uL (4.8-10.8)
[2024-12-11 13:17] LABS: ALT (SGPT) 19 U/L (0-35); AST (SGOT) 29 U/L (14-36); Alkaline Phosphatase 53 U/L (38-126); Blood Urea Nitrogen 13 mg/dl (7-17); Calcium 8.7 mg/dl (8.4-10.2); Carbon Dioxide 30 mmol/L (22-30); Chloride 103 mmol/L (98-107); Glucose 91 mg/dl (70-99); Potassium 4.3 mmol/L (3.5-5.1); Sodium 138 mmol/L (135-145); Total Bilirubin 0.5 mg/dl (0.2-1.3); Total Protein 6.7 g/dl (6.3-8.2); eGFR > 60.00
[2024-12-11 13:34] LABS: Mean Platelet Volume 11.9 fL (7.4-10.4); Platelet Count 96 10^3/uL (130-400)
== END ==
LOC: REG 12:18
PROVIDERS: ATTENDING PHYSICIAN Internal Medicine Hematology & Oncology; FAMILY PHYSICIAN Family Medicine
DX: D69.3 Immune thrombocytopenic purpura (principal); R74.01 Elevation of levels of liver transaminase levels
CPT/HCPCS: 36415; 80053; 85025

== ENCOUNTER → 2024-12-25 07:29 | Outpatient (REF) | payer MEDICARE, BC, SELFPAY ==
[2024-12-25 08:18] LABS: % Basophils 1.2 % (0-2); % Eosinophils 3.8 % (0-6); % Lymphocytes 35.9 % (20.5-51.1); % Monocytes 7.6 % (1.7-9.3); % Neutrophils 50.5 % (42.2-75.2); Absolute Basophils 0.1 10^3/uL (0-0.2); Absolute Eosinophils 0.2 10^3/uL (0-0.7); Absolute Lymphocytes 1.5 10^3/uL (1.2-3.4); Absolute Monocytes 0.3 10^3/uL (0.1-0.6); Absolute Neutrophils 2.1 10^3/uL (1.4-6.5); Hematocrit 38.5 % (37.0-47.0); Hemoglobin 12.8 g/dL (12.0-16.0); Mean Corp Hgb Conc. 33.2 g/dL (33.0-37.0); Mean Corpuscular Hgb 29.5 pg (27.0-31.0); Mean Corpuscular Volume 88.7 fL (81.0-99.0); Mean Platelet Volume 11.7 fL (7.4-10.4); Nucleated Red Blood Cells % 0 %; Platelet Count 116 10^3/uL (130-400); Red Blood Cell Count 4.34 10^6/uL (4.20-5.40); Red Cell Dist. Width 12.5 % (11.5-14.5); White Blood Cell Count 4.2 10^3/uL (4.8-10.8)
[2024-12-25 08:49] LABS: ALT (SGPT) 23 U/L (0-35); AST (SGOT) 31 U/L (14-36); Albumin 3.9 g/dl (3.5-5.0); Alkaline Phosphatase 54 U/L (38-126); Blood Urea Nitrogen 16 mg/dl (7-17); Calcium 8.3 mg/dl (8.4-10.2); Carbon Dioxide 30 mmol/L (22-30); Chloride 104 mmol/L (98-107); Glucose 82 mg/dl (70-99); Potassium 4.5 mmol/L (3.5-5.1); Sodium 140 mmol/L (135-145); Total Bilirubin 0.8 mg/dl (0.2-1.3); Total Protein 6.5 g/dl (6.3-8.2); eGFR > 60.00
== END ==
LOC: REG 07:29
PROVIDERS: ATTENDING PHYSICIAN Internal Medicine Hematology & Oncology; FAMILY PHYSICIAN Family Medicine
DX: D69.3 Immune thrombocytopenic purpura (principal); R74.01 Elevation of levels of liver transaminase levels
CPT/HCPCS: 36415; 80053; 85025

== ENCOUNTER → 2025-01-06 07:33 | Outpatient (REF) | payer MEDICARE, BC, SELFPAY | LOC: PAVMRI 07:33 | PROVIDERS: ATTENDING PHYSICIAN Podiatrist Foot & Ankle Surgery; FAMILY PHYSICIAN Family Medicine | DX: M84.375A Stress fracture, left foot, initial encounter for fracture (principal); M66.372 Spontaneous rupture of flexor tendons, left ankle and foot | CPT/HCPCS: 73718 ==

== ENCOUNTER → 2025-01-07 11:15 | Outpatient (REF) | payer MEDICARE, BC, SELFPAY ==
[2025-01-07 12:58] LABS: % Basophils 0.7 % (0-2); % Eosinophils 3.6 % (0-6); % Immature Granulocytes 0.3 % (0-0.5); % Lymphocytes 25.6 % (20.5-51.1); % Monocytes 8.5 % (1.7-9.3); % Neutrophils 61.3 % (42.2-75.2); Absolute Eosinophils 0.2 10^3/uL (0-0.7); Absolute Lymphocytes 1.5 10^3/uL (1.2-3.4); Absolute Monocytes 0.5 10^3/uL (0.1-0.6); Absolute Neutrophils 3.6 10^3/uL (1.4-6.5); Hematocrit 37.7 % (37.0-47.0); Hemoglobin 12.4 g/dL (12.0-16.0); Mean Corp Hgb Conc. 32.9 g/dL (33.0-37.0); Mean Corpuscular Hgb 29.8 pg (27.0-31.0); Mean Corpuscular Volume 90.6 fL (81.0-99.0); Mean Platelet Volume 11.8 fL (7.4-10.4); Nucleated Red Blood Cells % 0 %; Platelet Count 182 10^3/uL (130-400); Red Blood Cell Count 4.16 10^6/uL (4.20-5.40); Red Cell Dist. Width 13.1 % (11.5-14.5); White Blood Cell Count 5.9 10^3/uL (4.8-10.8)
== END ==
LOC: REG 11:15
PROVIDERS: ATTENDING PHYSICIAN Internal Medicine Hematology & Oncology; FAMILY PHYSICIAN Family Medicine
DX: D69.3 Immune thrombocytopenic purpura (principal); R74.01 Elevation of levels of liver transaminase levels
CPT/HCPCS: 36415; 85025

== ENCOUNTER → 2025-02-01 10:01 | Outpatient (REF) | payer MEDICARE, BC, SELFPAY ==
[2025-02-01 11:24] LABS: % Basophils 1.4 % (0-2); % Eosinophils 3.3 % (0-6); % Immature Granulocytes 0.2 % (0-0.5); % Lymphocytes 24.8 % (20.5-51.1); % Monocytes 8.1 % (1.7-9.3); % Neutrophils 62.2 % (42.2-75.2); Absolute Basophils 0.1 10^3/uL (0-0.2); Absolute Eosinophils 0.1 10^3/uL (0-0.7); Absolute Monocytes 0.3 10^3/uL (0.1-0.6); Absolute Neutrophils 2.6 10^3/uL (1.4-6.5); Hematocrit 39.6 % (37.0-47.0); Hemoglobin 13.4 g/dL (12.0-16.0); Mean Corp Hgb Conc. 33.8 g/dL (33.0-37.0); Mean Corpuscular Hgb 29.8 pg (27.0-31.0); Mean Platelet Volume 12.5 fL (7.4-10.4); Nucleated Red Blood Cells % 0 %; Platelet Count 101 10^3/uL (130-400); Red Cell Dist. Width 12.9 % (11.5-14.5); White Blood Cell Count 4.2 10^3/uL (4.8-10.8)
[2025-02-01 12:23] LABS: ALT (SGPT) 371 U/L (0-35); AST (SGOT) 330 U/L (14-36); Albumin 3.8 g/dl (3.5-5.0); Alkaline Phosphatase 58 U/L (38-126); Blood Urea Nitrogen 17 mg/dl (7-17); Calcium 8.9 mg/dl (8.4-10.2); Carbon Dioxide 30 mmol/L (22-30); Chloride 105 mmol/L (98-107); Glucose 82 mg/dl (70-99); Sodium 138 mmol/L (135-145); Total Bilirubin 0.5 mg/dl (0.2-1.3); Total Protein 6.5 g/dl (6.3-8.2); eGFR > 60.00
== END ==
LOC: REG 10:01
PROVIDERS: ATTENDING PHYSICIAN Internal Medicine Hematology & Oncology; FAMILY PHYSICIAN Family Medicine
DX: D69.3 Immune thrombocytopenic purpura (principal); R74.01 Elevation of levels of liver transaminase levels
CPT/HCPCS: 36415; 80053; 85025

== ENCOUNTER → 2025-02-22 11:28 | Outpatient (REF) | payer MEDICARE, BC, SELFPAY ==
[2025-02-22 12:23] LABS: % Eosinophils 3.7 % (0-6); % Lymphocytes 31.9 % (20.5-51.1); % Monocytes 9.4 % (1.7-9.3); Absolute Basophils 0.1 10^3/uL (0-0.2); Absolute Eosinophils 0.2 10^3/uL (0-0.7); Absolute Lymphocytes 1.3 10^3/uL (1.2-3.4); Absolute Monocytes 0.4 10^3/uL (0.1-0.6); Absolute Neutrophils 2.1 10^3/uL (1.4-6.5); Hemoglobin 13.2 g/dL (12.0-16.0); Mean Corp Hgb Conc. 33.8 g/dL (33.0-37.0); Mean Corpuscular Hgb 29.8 pg (27.0-31.0); Mean Platelet Volume 12.6 fL (7.4-10.4); Nucleated Red Blood Cells % 0 %; Platelet Count 73 10^3/uL (130-400); Red Blood Cell Count 4.43 10^6/uL (4.20-5.40); Red Cell Dist. Width 13.2 % (11.5-14.5)
[2025-02-22 13:34] LABS: ALT (SGPT) 204 U/L (0-35); AST (SGOT) 146 U/L (14-36); Albumin 3.9 g/dl (3.5-5.0); Alkaline Phosphatase 68 U/L (38-126); Blood Urea Nitrogen 12 mg/dl (7-17); Calcium 8.9 mg/dl (8.4-10.2); Carbon Dioxide 27 mmol/L (22-30); Chloride 108 mmol/L (98-107); Glucose 82 mg/dl (70-99); Potassium 4.2 mmol/L (3.5-5.1); Sodium 140 mmol/L (135-145); Total Bilirubin 0.7 mg/dl (0.2-1.3); Total Protein 6.3 g/dl (6.3-8.2); eGFR > 60.00
== END ==
LOC: REG 11:28
PROVIDERS: ATTENDING PHYSICIAN Internal Medicine Hematology & Oncology; FAMILY PHYSICIAN Family Medicine
DX: D69.3 Immune thrombocytopenic purpura (principal); R74.01 Elevation of levels of liver transaminase levels
CPT/HCPCS: 36415; 80053; 85025

== ENCOUNTER → 2025-03-08 11:43 | Outpatient (REF) | payer MEDICARE, BC, SELFPAY ==
[2025-03-08 12:24] LABS: % Basophils 1.3 % (0-2); % Eosinophils 3.3 % (0-6); % Immature Granulocytes 0.3 % (0-0.5); % Lymphocytes 31.8 % (20.5-51.1); % Neutrophils 54.3 % (42.2-75.2); Absolute Basophils 0.1 10^3/uL (0-0.2); Absolute Eosinophils 0.1 10^3/uL (0-0.7); Absolute Lymphocytes 1.3 10^3/uL (1.2-3.4); Absolute Monocytes 0.4 10^3/uL (0.1-0.6); Absolute Neutrophils 2.2 10^3/uL (1.4-6.5); Hematocrit 41.2 % (37.0-47.0); Hemoglobin 13.9 g/dL (12.0-16.0); Mean Corp Hgb Conc. 33.7 g/dL (33.0-37.0); Mean Corpuscular Hgb 29.8 pg (27.0-31.0); Mean Corpuscular Volume 88.2 fL (81.0-99.0); Mean Platelet Volume 11.3 fL (7.4-10.4); Nucleated Red Blood Cells % 0 %; Platelet Count 169 10^3/uL (130-400); Red Blood Cell Count 4.67 10^6/uL (4.20-5.40)
[2025-03-08 13:14] LABS: ALT (SGPT) 144 U/L (0-35); AST (SGOT) 94 U/L (14-36); Albumin 4.2 g/dl (3.5-5.0); Alkaline Phosphatase 64 U/L (38-126); Blood Urea Nitrogen 15 mg/dl (7-17); Calcium 9.2 mg/dl (8.4-10.2); Carbon Dioxide 25 mmol/L (22-30); Chloride 106 mmol/L (98-107); Glucose 84 mg/dl (70-99); Potassium 4.9 mmol/L (3.5-5.1); Sodium 140 mmol/L (135-145); Total Bilirubin 0.8 mg/dl (0.2-1.3); eGFR > 60.00
[2025-03-08 13:54] LABS: Total Protein 6.7 g/dl (6.3-8.2)
== END ==
LOC: REG 11:43
PROVIDERS: ATTENDING PHYSICIAN Internal Medicine Hematology & Oncology; FAMILY PHYSICIAN Family Medicine
DX: D69.3 Immune thrombocytopenic purpura (principal); R74.01 Elevation of levels of liver transaminase levels
CPT/HCPCS: 36415; 80053; 85025

== ENCOUNTER → 2025-03-22 09:57 | Outpatient (REF) | payer MEDICARE, BC, SELFPAY ==
[2025-03-22 10:52] LABS: % Basophils 1.5 % (0-2); % Immature Granulocytes 0.3 % (0-0.5); % Lymphocytes 32.7 % (20.5-51.1); % Neutrophils 51.5 % (42.2-75.2); Absolute Basophils 0.1 10^3/uL (0-0.2); Absolute Eosinophils 0.2 10^3/uL (0-0.7); Absolute Lymphocytes 1.3 10^3/uL (1.2-3.4); Absolute Monocytes 0.4 10^3/uL (0.1-0.6); Absolute Neutrophils 2.1 10^3/uL (1.4-6.5); Hematocrit 40.3 % (37.0-47.0); Hemoglobin 13.4 g/dL (12.0-16.0); Mean Corp Hgb Conc. 33.3 g/dL (33.0-37.0); Mean Corpuscular Hgb 29.5 pg (27.0-31.0); Mean Corpuscular Volume 88.8 fL (81.0-99.0); Mean Platelet Volume 11.9 fL (7.4-10.4); Nucleated Red Blood Cells % 0 %; Platelet Count 132 10^3/uL (130-400); Red Blood Cell Count 4.54 10^6/uL (4.20-5.40); Red Cell Dist. Width 12.4 % (11.5-14.5)
[2025-03-22 12:35] LABS: ALT (SGPT) 64 U/L (0-35); AST (SGOT) 52 U/L (14-36); Albumin 3.6 g/dl (3.5-5.0); Alkaline Phosphatase 57 U/L (38-126); Blood Urea Nitrogen 12 mg/dl (7-17); Carbon Dioxide 28 mmol/L (22-30); Chloride 106 mmol/L (98-107); Glucose 79 mg/dl (70-99); Potassium 4.8 mmol/L (3.5-5.1); Sodium 140 mmol/L (135-145); Total Bilirubin 0.7 mg/dl (0.2-1.3); Total Protein 6.2 g/dl (6.3-8.2); eGFR > 60.00
== END ==
LOC: REG 09:57
PROVIDERS: ATTENDING PHYSICIAN Internal Medicine Hematology & Oncology; FAMILY PHYSICIAN Family Medicine
DX: D69.3 Immune thrombocytopenic purpura (principal); R74.01 Elevation of levels of liver transaminase levels
CPT/HCPCS: 36415; 80053; 85025

== ENCOUNTER → 2025-04-05 10:36 | Outpatient (REF) | payer MEDICARE, BC, SELFPAY ==
[2025-04-05 12:08] LABS: % Basophils 0.7 % (0-2); % Eosinophils 3.2 % (0-6); % Immature Granulocytes 0.2 % (0-0.5); % Lymphocytes 29.8 % (20.5-51.1); % Monocytes 7.1 % (1.7-9.3); Absolute Eosinophils 0.1 10^3/uL (0-0.7); Absolute Lymphocytes 1.2 10^3/uL (1.2-3.4); Absolute Monocytes 0.3 10^3/uL (0.1-0.6); Absolute Neutrophils 2.4 10^3/uL (1.4-6.5); Hemoglobin 13.7 g/dL (12.0-16.0); Mean Corp Hgb Conc. 33.4 g/dL (33.0-37.0); Mean Corpuscular Hgb 29.7 pg (27.0-31.0); Mean Corpuscular Volume 88.9 fL (81.0-99.0); Mean Platelet Volume 12.3 fL (7.4-10.4); Nucleated Red Blood Cells % 0 %; Platelet Count 90 10^3/uL (130-400); Red Blood Cell Count 4.61 10^6/uL (4.20-5.40); Red Cell Dist. Width 12.4 % (11.5-14.5); White Blood Cell Count 4.1 10^3/uL (4.8-10.8)
[2025-04-05 12:10] LABS: ALT (SGPT) 59 U/L (0-35); AST (SGOT) 53 U/L (14-36); Albumin 3.9 g/dl (3.5-5.0); Alkaline Phosphatase 59 U/L (38-126); Blood Urea Nitrogen 18 mg/dl (7-17); Carbon Dioxide 30 mmol/L (22-30); Chloride 106 mmol/L (98-107); Glucose 79 mg/dl (70-99); Potassium 4.5 mmol/L (3.5-5.1); Sodium 140 mmol/L (135-145); Total Bilirubin 0.9 mg/dl (0.2-1.3); Total Protein 6.6 g/dl (6.3-8.2); eGFR > 60.00
== END ==
LOC: REG 10:36
PROVIDERS: ATTENDING PHYSICIAN Internal Medicine Hematology & Oncology; FAMILY PHYSICIAN Family Medicine
DX: D69.3 Immune thrombocytopenic purpura (principal); R74.01 Elevation of levels of liver transaminase levels
CPT/HCPCS: 36415; 80053; 85025

== ENCOUNTER → 2025-04-20 07:49 | Outpatient (REF) | payer MEDICARE, BC, SELFPAY ==
[2025-04-20 08:31] LABS: % Basophils 1.5 % (0-2); % Eosinophils 3.3 % (0-6); % Immature Granulocytes 0.5 % (0-0.5); % Lymphocytes 32.6 % (20.5-51.1); % Monocytes 8.5 % (1.7-9.3); % Neutrophils 53.6 % (42.2-75.2); Absolute Basophils 0.1 10^3/uL (0-0.2); Absolute Eosinophils 0.1 10^3/uL (0-0.7); Absolute Lymphocytes 1.3 10^3/uL (1.2-3.4); Absolute Monocytes 0.3 10^3/uL (0.1-0.6); Absolute Neutrophils 2.1 10^3/uL (1.4-6.5); Hematocrit 39.5 % (37.0-47.0); Hemoglobin 13.3 g/dL (12.0-16.0); Mean Corp Hgb Conc. 33.7 g/dL (33.0-37.0); Mean Corpuscular Hgb 29.8 pg (27.0-31.0); Mean Corpuscular Volume 88.6 fL (81.0-99.0); Mean Platelet Volume 11.3 fL (7.4-10.4); Nucleated Red Blood Cells % 0 %; Platelet Count 130 10^3/uL (130-400); Red Blood Cell Count 4.46 10^6/uL (4.20-5.40); Red Cell Dist. Width 12.4 % (11.5-14.5); White Blood Cell Count 3.9 10^3/uL (4.8-10.8)
[2025-04-20 08:43] LABS: ALT (SGPT) 45 U/L (0-35); AST (SGOT) 41 U/L (14-36); Alkaline Phosphatase 49 U/L (38-126); Blood Urea Nitrogen 16 mg/dl (7-17); Calcium 9.1 mg/dl (8.4-10.2); Carbon Dioxide 28 mmol/L (22-30); Chloride 110 mmol/L (98-107); Glucose 82 mg/dl (70-99); Potassium 4.9 mmol/L (3.5-5.1); Sodium 142 mmol/L (135-145); Total Bilirubin 0.6 mg/dl (0.2-1.3); Total Protein 6.5 g/dl (6.3-8.2); eGFR > 60.00
== END ==
LOC: REG 07:49
PROVIDERS: ATTENDING PHYSICIAN Internal Medicine Hematology & Oncology; FAMILY PHYSICIAN Family Medicine
DX: D69.3 Immune thrombocytopenic purpura (principal); R74.01 Elevation of levels of liver transaminase levels
CPT/HCPCS: 36415; 80053; 85025

== ENCOUNTER → 2025-04-22 17:33 | Outpatient (REF) | payer MEDICARE, BC, SELFPAY | LOC: WDC 17:33 | PROVIDERS: ATTENDING PHYSICIAN Family Medicine | DX: Z12.31 Encounter for screening mammogram for malignant neoplasm of breast (principal) | CPT/HCPCS: 77063; 77067 ==

== ENCOUNTER → 2025-05-03 11:37 | Outpatient (REF) | payer MEDICARE, BC, SELFPAY ==
[2025-05-03 12:17] LABS: % Eosinophils 2.1 % (0-6); % Immature Granulocytes 0.3 % (0-0.5); % Monocytes 8.7 % (1.7-9.3); % Neutrophils 50.9 % (42.2-75.2); Absolute Eosinophils 0.1 10^3/uL (0-0.7); Absolute Lymphocytes 1.4 10^3/uL (1.2-3.4); Absolute Monocytes 0.3 10^3/uL (0.1-0.6); Absolute Neutrophils 1.9 10^3/uL (1.4-6.5); Hematocrit 41.2 % (37.0-47.0); Hemoglobin 13.6 g/dL (12.0-16.0); Mean Corpuscular Hgb 29.3 pg (27.0-31.0); Mean Corpuscular Volume 88.8 fL (81.0-99.0); Mean Platelet Volume 12.1 fL (7.4-10.4); Nucleated Red Blood Cells % 0 %; Platelet Count 106 10^3/uL (130-400); Red Blood Cell Count 4.64 10^6/uL (4.20-5.40); Red Cell Dist. Width 12.5 % (11.5-14.5); White Blood Cell Count 3.8 10^3/uL (4.8-10.8)
[2025-05-03 12:44] LABS: ALT (SGPT) 45 U/L (0-35); AST (SGOT) 43 U/L (14-36); Albumin 4.1 g/dl (3.5-5.0); Alkaline Phosphatase 53 U/L (38-126); Blood Urea Nitrogen 14 mg/dl (7-17); Calcium 9.2 mg/dl (8.4-10.2); Carbon Dioxide 28 mmol/L (22-30); Chloride 108 mmol/L (98-107); Glucose 83 mg/dl (70-99); Potassium 4.1 mmol/L (3.5-5.1); Sodium 140 mmol/L (135-145); Total Bilirubin 0.8 mg/dl (0.2-1.3); Total Protein 6.7 g/dl (6.3-8.2); eGFR > 60.00
== END ==
LOC: REG 11:37
PROVIDERS: ATTENDING PHYSICIAN Internal Medicine Hematology & Oncology; FAMILY PHYSICIAN Family Medicine
DX: D69.3 Immune thrombocytopenic purpura (principal); R74.01 Elevation of levels of liver transaminase levels
CPT/HCPCS: 36415; 80053; 85025

== ENCOUNTER → 2025-05-17 11:15 | Outpatient (REF) | payer MEDICARE, BC, SELFPAY ==
[2025-05-17 11:48] LABS: % Basophils 1.5 % (0-2); % Eosinophils 2.5 % (0-6); % Immature Granulocytes 0.2 % (0-0.5); % Lymphocytes 31.9 % (20.5-51.1); % Monocytes 9.3 % (1.7-9.3); % Neutrophils 54.6 % (42.2-75.2); Absolute Basophils 0.1 10^3/uL (0-0.2); Absolute Eosinophils 0.1 10^3/uL (0-0.7); Absolute Lymphocytes 1.3 10^3/uL (1.2-3.4); Absolute Monocytes 0.4 10^3/uL (0.1-0.6); Absolute Neutrophils 2.2 10^3/uL (1.4-6.5); Hematocrit 41.6 % (37.0-47.0); Mean Corp Hgb Conc. 33.7 g/dL (33.0-37.0); Mean Corpuscular Hgb 29.5 pg (27.0-31.0); Mean Corpuscular Volume 87.8 fL (81.0-99.0); Mean Platelet Volume 11.6 fL (7.4-10.4); Nucleated Red Blood Cells % 0 %; Platelet Count 150 10^3/uL (130-400); Red Blood Cell Count 4.74 10^6/uL (4.20-5.40); Red Cell Dist. Width 12.9 % (11.5-14.5); White Blood Cell Count 4.1 10^3/uL (4.8-10.8)
[2025-05-17 14:18] LABS: ALT (SGPT) 43 U/L (0-35); AST (SGOT) 42 U/L (14-36); Albumin 4.4 g/dl (3.5-5.0); Alkaline Phosphatase 50 U/L (38-126); Blood Urea Nitrogen 15 mg/dl (7-17); Calcium 9.1 mg/dl (8.4-10.2); Carbon Dioxide 27 mmol/L (22-30); Chloride 109 mmol/L (98-107); Glucose 77 mg/dl (70-99); Potassium 5.2 mmol/L (3.5-5.1); Sodium 142 mmol/L (135-145); Total Bilirubin 0.6 mg/dl (0.2-1.3); Total Protein 7.1 g/dl (6.3-8.2); eGFR > 60.00
== END ==
LOC: REG 11:15
PROVIDERS: ATTENDING PHYSICIAN Internal Medicine Hematology & Oncology; FAMILY PHYSICIAN Family Medicine
DX: D69.3 Immune thrombocytopenic purpura (principal); R74.01 Elevation of levels of liver transaminase levels
CPT/HCPCS: 36415; 80053; 85025

== ENCOUNTER → 2025-05-31 11:02 | Outpatient (REF) | payer MEDICARE, BC, SELFPAY ==
[2025-05-31 12:26] LABS: Hematocrit 39.3 % (37.0-47.0); Hemoglobin 13.0 g/dL (12.0-16.0); Mean Corp Hgb Conc. 33.7 g/dL (33.0-37.0); Mean Corpuscular Volume 89.0 fL (81.0-99.0); Nucleated Red Blood Cells % 0 %; Platelet Count 134 10^3/uL (130-400); Red Cell Dist. Width 13.0 % (11.5-14.5)
[2025-05-31 14:02] LABS: AST (SGOT) 41 U/L (14-36); Albumin 3.9 g/dl (3.5-5.0); Alkaline Phosphatase 50 U/L (38-126); Blood Urea Nitrogen 16 mg/dl (7-17); Carbon Dioxide 27 mmol/L (22-30); Chloride 110 mmol/L (98-107); Glucose 84 mg/dl (70-99); Potassium 5.1 mmol/L (3.5-5.1); Sodium 138 mmol/L (135-145); Total Protein 6.5 g/dl (6.3-8.2); eGFR > 60.00
[2025-05-31 14:13] LABS: ALT (SGPT) 36 U/L (0-35); Calcium 8.9 mg/dl (8.4-10.2)
== END ==
LOC: REG 11:02
PROVIDERS: ATTENDING PHYSICIAN Internal Medicine Hematology & Oncology; FAMILY PHYSICIAN Family Medicine
DX: D69.3 Immune thrombocytopenic purpura (principal); R74.01 Elevation of levels of liver transaminase levels
CPT/HCPCS: 36415; 80053; 85025

== ENCOUNTER → 2025-06-14 10:11 | Outpatient (REF) | payer MEDICARE, BC, SELFPAY ==
[2025-06-14 10:59] LABS: Hematocrit 40.7 % (37.0-47.0); Hemoglobin 13.5 g/dL (12.0-16.0); Mean Corp Hgb Conc. 33.2 g/dL (33.0-37.0); Mean Corpuscular Volume 88.3 fL (81.0-99.0); Nucleated Red Blood Cells % 0 %; Platelet Count 142 10^3/uL (130-400); Red Cell Dist. Width 13.4 % (11.5-14.5)
[2025-06-14 11:18] LABS: ALT (SGPT) 31 U/L (0-35); AST (SGOT) 35 U/L (14-36); Albumin 4.1 g/dl (3.5-5.0); Alkaline Phosphatase 48 U/L (38-126); Blood Urea Nitrogen 18 mg/dl (7-17); Calcium 9.2 mg/dl (8.4-10.2); Carbon Dioxide 29 mmol/L (22-30); Chloride 105 mmol/L (98-107); Glucose 86 mg/dl (70-99); Potassium 5.2 mmol/L (3.5-5.1); Sodium 137 mmol/L (135-145); Total Protein 6.7 g/dl (6.3-8.2); eGFR > 60.00
== END ==
LOC: REG 10:11
PROVIDERS: ATTENDING PHYSICIAN Internal Medicine Hematology & Oncology; FAMILY PHYSICIAN Family Medicine
DX: D69.3 Immune thrombocytopenic purpura (principal); R74.01 Elevation of levels of liver transaminase levels
CPT/HCPCS: 36415; 80053; 85025

== ENCOUNTER → 2025-06-28 10:51 | Outpatient (REF) | payer MEDICARE, BC, SELFPAY ==
[2025-06-28 12:04] LABS: Hematocrit 38.5 % (37.0-47.0); Hemoglobin 12.7 g/dL (12.0-16.0); Mean Corp Hgb Conc. 33.0 g/dL (33.0-37.0); Mean Corpuscular Volume 90.4 fL (81.0-99.0); Nucleated Red Blood Cells % 0 %; Platelet Count 106 10^3/uL (130-400); Red Cell Dist. Width 13.1 % (11.5-14.5)
[2025-06-28 12:18] LABS: ALT (SGPT) 33 U/L (0-35); AST (SGOT) 36 U/L (14-36); Albumin 4.1 g/dl (3.5-5.0); Alkaline Phosphatase 52 U/L (38-126); Blood Urea Nitrogen 19 mg/dl (7-17); Calcium 9.2 mg/dl (8.4-10.2); Carbon Dioxide 28 mmol/L (22-30); Chloride 105 mmol/L (98-107); Glucose 78 mg/dl (70-99); Iron 127 ug/dl (37-170); Potassium 4.6 mmol/L (3.5-5.1); Sodium 137 mmol/L (135-145); Total Protein 6.8 g/dl (6.3-8.2); eGFR > 60.00
[2025-06-28 14:18] LABS: Ferritin 132.0 ng/ml (11.1-264.0)
[2025-06-28 18:51] LABS: Hepatitis B Surface Antigen Negative (Negative)
[2025-06-28 19:08] LABS: Hepatitis C Antibody Negative (Negative)
[2025-06-28 20:24] LABS: Hepatitis A Antibody, Total Borderline (Negative)
[2025-06-30 09:48] LABS: ANA, IgG Reflex to HEp-2 None Detected (None Detected)
[2025-06-30 10:20] LABS: Mitochondrial M2 Ab, IgG 4.3 Units (0.0-24.9)
[2025-06-30 13:53] LABS: tTG IgA Antibody 3.9 EU/ml (0-19)
[2025-07-01 02:28] LABS: LKM-1 Ab (IgG) 1.6 U (0.0-24.9)
== END ==
LOC: REG 10:51
PROVIDERS: ATTENDING PHYSICIAN Internal Medicine Hematology & Oncology; FAMILY PHYSICIAN Family Medicine; OTHER PHYSICIAN Internal Medicine
DX: D69.6 Thrombocytopenia, unspecified (principal); R74.01 Elevation of levels of liver transaminase levels; R74.8 Abnormal levels of other serum enzymes
CPT/HCPCS: 36415; 80053; 82103; 82104; 82390; 82728; 82784; 82787; 83516; 83540; 84155; 84165; 85025; 86015; 86038; 86231; 86376; 86381; 86704; 86705; 86706; 86708; 86709; 86803; 87340

== ENCOUNTER 2025-07-08 06:21 | Day surgery (SDC) | payer MEDICARE, BC, SELFPAY | END 2025-07-08 11:41 | disposition home or self-care (01) | LOC: GI 06:21 | PROVIDERS: ATTENDING PHYSICIAN Internal Medicine | DX: Z12.11 Encounter for screening for malignant neoplasm of colon (principal); K64.8 Other hemorrhoids; K44.9 Diaphragmatic hernia without obstruction or gangrene; K21.00 Gastro-esophageal reflux disease with esophagitis, without bleeding; D12.0 Benign neoplasm of cecum; D12.2 Benign neoplasm of ascending colon; K62.1 Rectal polyp; Z13.810 Encounter for screening for upper gastrointestinal disorder; Z80.0 Family history of malignant neoplasm of digestive organs; Z86.0100 Personal history of colon polyps, unspecified | CPT/HCPCS: 45380; 43239; 88305; 88342 ==

== ENCOUNTER → 2025-07-12 06:27 | Outpatient (REF) | payer MEDICARE, BC, SELFPAY ==
[2025-07-12 08:48] LABS: Hematocrit 38.6 % (37.0-47.0); Hemoglobin 12.8 g/dL (12.0-16.0); Mean Corp Hgb Conc. 33.2 g/dL (33.0-37.0); Mean Corpuscular Volume 90.6 fL (81.0-99.0); Nucleated Red Blood Cells % 0 %; Platelet Count 139 10^3/uL (130-400); Red Cell Dist. Width 13.2 % (11.5-14.5)
[2025-07-12 09:01] LABS: ALT (SGPT) 28 U/L (0-35); AST (SGOT) 32 U/L (14-36); Albumin 3.8 g/dl (3.5-5.0); Alkaline Phosphatase 44 U/L (38-126); Blood Urea Nitrogen 16 mg/dl (7-17); Calcium 9.1 mg/dl (8.4-10.2); Carbon Dioxide 31 mmol/L (22-30); Chloride 106 mmol/L (98-107); Glucose 78 mg/dl (70-99); Potassium 4.2 mmol/L (3.5-5.1); Sodium 140 mmol/L (135-145); Total Protein 6.5 g/dl (6.3-8.2); eGFR > 60.00
== END ==
LOC: REG 06:27
PROVIDERS: ATTENDING PHYSICIAN Internal Medicine Hematology & Oncology; FAMILY PHYSICIAN Family Medicine
DX: D69.3 Immune thrombocytopenic purpura (principal); R74.01 Elevation of levels of liver transaminase levels
CPT/HCPCS: 36415; 80053; 85025

== ENCOUNTER → 2025-07-27 06:46 | Outpatient (REF) | payer MEDICARE, BC, SELFPAY ==
[2025-07-27 07:56] LABS: Hematocrit 38.5 % (37.0-47.0); Hemoglobin 12.6 g/dL (12.0-16.0); Mean Corp Hgb Conc. 32.7 g/dL (33.0-37.0); Mean Corpuscular Volume 90.8 fL (81.0-99.0); Nucleated Red Blood Cells % 0 %; Platelet Count 156 10^3/uL (130-400); Red Cell Dist. Width 12.9 % (11.5-14.5)
[2025-07-27 08:45] LABS: ALT (SGPT) 26 U/L (0-35); AST (SGOT) 32 U/L (14-36); Albumin 3.7 g/dl (3.5-5.0); Alkaline Phosphatase 49 U/L (38-126); Blood Urea Nitrogen 17 mg/dl (7-17); Calcium 9.0 mg/dl (8.4-10.2); Carbon Dioxide 28 mmol/L (22-30); Chloride 108 mmol/L (98-107); Glucose 85 mg/dl (70-99); Potassium 4.2 mmol/L (3.5-5.1); Sodium 140 mmol/L (135-145); Total Protein 6.3 g/dl (6.3-8.2); eGFR > 60.00
== END ==
LOC: REG 06:46
PROVIDERS: ATTENDING PHYSICIAN Internal Medicine Hematology & Oncology; FAMILY PHYSICIAN Family Medicine
DX: D69.3 Immune thrombocytopenic purpura (principal); R74.01 Elevation of levels of liver transaminase levels
CPT/HCPCS: 36415; 80053; 85025

== ENCOUNTER → 2025-08-09 12:04 | Outpatient (REF) | payer MEDICARE, BC, SELFPAY ==
[2025-08-09 13:04] LABS: Hematocrit 39.9 % (37.0-47.0); Hemoglobin 13.1 g/dL (12.0-16.0); Mean Corp Hgb Conc. 32.8 g/dL (33.0-37.0); Mean Corpuscular Volume 89.9 fL (81.0-99.0); Nucleated Red Blood Cells % 0 %; Platelet Count 173 10^3/uL (130-400); Red Cell Dist. Width 12.6 % (11.5-14.5)
[2025-08-09 14:55] LABS: ALT (SGPT) 30 U/L (0-35); AST (SGOT) 36 U/L (14-36); Albumin 3.9 g/dl (3.5-5.0); Alkaline Phosphatase 48 U/L (38-126); Blood Urea Nitrogen 18 mg/dl (7-17); Calcium 9.0 mg/dl (8.4-10.2); Carbon Dioxide 29 mmol/L (22-30); Chloride 106 mmol/L (98-107); Glucose 83 mg/dl (70-99); Potassium 4.8 mmol/L (3.5-5.1); Sodium 137 mmol/L (135-145); Total Protein 6.6 g/dl (6.3-8.2); eGFR > 60.00
== END ==
LOC: REG 12:04
PROVIDERS: ATTENDING PHYSICIAN Internal Medicine Hematology & Oncology; FAMILY PHYSICIAN Family Medicine
DX: D69.3 Immune thrombocytopenic purpura (principal); R74.01 Elevation of levels of liver transaminase levels
CPT/HCPCS: 36415; 80053; 85025

== ENCOUNTER → 2025-08-30 11:37 | Outpatient (REF) | payer MEDICARE, BC, SELFPAY ==
[2025-08-30 13:03] LABS: Hematocrit 39.0 % (37.0-47.0); Hemoglobin 12.8 g/dL (12.0-16.0); Mean Corp Hgb Conc. 32.8 g/dL (33.0-37.0); Mean Corpuscular Volume 90.3 fL (81.0-99.0); Nucleated Red Blood Cells % 0 %; Platelet Count 110 10^3/uL (130-400); Red Cell Dist. Width 12.4 % (11.5-14.5)
[2025-08-30 13:24] LABS: ALT (SGPT) 32 U/L (0-35); AST (SGOT) 36 U/L (14-36); Albumin 3.9 g/dl (3.5-5.0); Alkaline Phosphatase 49 U/L (38-126); Blood Urea Nitrogen 18 mg/dl (7-17); Calcium 8.7 mg/dl (8.4-10.2); Carbon Dioxide 30 mmol/L (22-30); Chloride 106 mmol/L (98-107); Glucose 90 mg/dl (70-99); Potassium 4.4 mmol/L (3.5-5.1); Sodium 139 mmol/L (135-145); Total Protein 6.4 g/dl (6.3-8.2); eGFR 53.06
== END ==
LOC: REG 11:37
PROVIDERS: ATTENDING PHYSICIAN Internal Medicine Hematology & Oncology; FAMILY PHYSICIAN Family Medicine
DX: D69.3 Immune thrombocytopenic purpura (principal); R74.01 Elevation of levels of liver transaminase levels
CPT/HCPCS: 36415; 80053; 85025

== ENCOUNTER → 2025-09-13 11:43 | Outpatient (REF) | payer MEDICARE, BC, SELFPAY ==
[2025-09-13 12:55] LABS: Hematocrit 41.2 % (37.0-47.0); Hemoglobin 13.8 g/dL (12.0-16.0); Mean Corp Hgb Conc. 33.5 g/dL (33.0-37.0); Mean Corpuscular Volume 91.2 fL (81.0-99.0); Nucleated Red Blood Cells % 0 %; Platelet Count 158 10^3/uL (130-400); Red Cell Dist. Width 12.7 % (11.5-14.5)
[2025-09-13 13:17] LABS: ALT (SGPT) 27 U/L (0-35); AST (SGOT) 31 U/L (14-36); Albumin 4.2 g/dl (3.5-5.0); Alkaline Phosphatase 53 U/L (38-126); Blood Urea Nitrogen 15 mg/dl (7-17); Calcium 9.1 mg/dl (8.4-10.2); Carbon Dioxide 30 mmol/L (22-30); Chloride 106 mmol/L (98-107); Glucose 78 mg/dl (70-99); Potassium 5.2 mmol/L (3.5-5.1); Sodium 140 mmol/L (135-145); Total Protein 7.0 g/dl (6.3-8.2); eGFR > 60.00
== END ==
LOC: REG 11:43
PROVIDERS: ATTENDING PHYSICIAN Internal Medicine Hematology & Oncology; FAMILY PHYSICIAN Family Medicine
DX: D69.3 Immune thrombocytopenic purpura (principal); R74.01 Elevation of levels of liver transaminase levels
CPT/HCPCS: 36415; 80053; 85025

== ENCOUNTER → 2025-10-05 06:33 | Outpatient (REF) | payer MEDICARE, BC, SELFPAY ==
[2025-10-05 07:16] LABS: Hematocrit 39.2 % (37.0-47.0); Hemoglobin 12.9 g/dL (12.0-16.0); Mean Corp Hgb Conc. 32.9 g/dL (33.0-37.0); Mean Corpuscular Volume 89.3 fL (81.0-99.0); Nucleated Red Blood Cells % 0 %; Red Cell Dist. Width 12.5 % (11.5-14.5)
[2025-10-05 07:21] LABS: ALT (SGPT) 22 U/L (0-35); AST (SGOT) 27 U/L (14-36); Albumin 3.9 g/dl (3.5-5.0); Alkaline Phosphatase 45 U/L (38-126); Blood Urea Nitrogen 15 mg/dl (7-17); Calcium 8.7 mg/dl (8.4-10.2); Carbon Dioxide 32 mmol/L (22-30); Chloride 105 mmol/L (98-107); Glucose 82 mg/dl (70-99); Potassium 4.2 mmol/L (3.5-5.1); Sodium 140 mmol/L (135-145); Total Protein 6.5 g/dl (6.3-8.2); eGFR > 60.00
[2025-10-05 07:46] LABS: Platelet Count 95 10^3/uL (130-400)
== END ==
LOC: REG 06:33
PROVIDERS: ATTENDING PHYSICIAN Internal Medicine Hematology & Oncology; FAMILY PHYSICIAN Family Medicine
DX: D69.3 Immune thrombocytopenic purpura (principal); R74.01 Elevation of levels of liver transaminase levels
CPT/HCPCS: 36415; 80053; 85025

== ENCOUNTER → 2025-10-18 06:41 | Outpatient (REF) | payer MEDICARE, BC, SELFPAY ==
[2025-10-18 08:02] LABS: Hematocrit 40.7 % (37.0-47.0); Hemoglobin 13.1 g/dL (12.0-16.0); Mean Corp Hgb Conc. 32.2 g/dL (33.0-37.0); Mean Corpuscular Volume 93.6 fL (81.0-99.0); Nucleated Red Blood Cells % 0 %; Platelet Count 142 10^3/uL (130-400); Red Cell Dist. Width 12.6 % (11.5-14.5)
[2025-10-18 08:08] LABS: ALT (SGPT) 25 U/L (0-35); AST (SGOT) 30 U/L (14-36); Albumin 3.9 g/dl (3.5-5.0); Alkaline Phosphatase 46 U/L (38-126); Blood Urea Nitrogen 20 mg/dl (7-17); Calcium 9.1 mg/dl (8.4-10.2); Carbon Dioxide 31 mmol/L (22-30); Chloride 103 mmol/L (98-107); Glucose 86 mg/dl (70-99); Potassium 4.7 mmol/L (3.5-5.1); Sodium 135 mmol/L (135-145); Total Protein 6.7 g/dl (6.3-8.2); eGFR > 60.00
== END ==
LOC: REG 06:41
PROVIDERS: ATTENDING PHYSICIAN Internal Medicine Hematology & Oncology; FAMILY PHYSICIAN Family Medicine
DX: D69.3 Immune thrombocytopenic purpura (principal); R74.01 Elevation of levels of liver transaminase levels
CPT/HCPCS: 36415; 80053; 85025

== ENCOUNTER → 2025-11-05 10:23 | Outpatient (REF) | payer MEDICARE, BC, SELFPAY ==
[2025-11-05 11:24] LABS: Hematocrit 42.9 % (37.0-47.0); Hemoglobin 14.6 g/dL (12.0-16.0); Mean Corp Hgb Conc. 34.0 g/dL (33.0-37.0); Mean Corpuscular Volume 88.8 fL (81.0-99.0); Nucleated Red Blood Cells % 0 %; Platelet Count 131 10^3/uL (130-400); Red Cell Dist. Width 12.3 % (11.5-14.5)
[2025-11-05 11:53] LABS: ALT (SGPT) 25 U/L (0-35); AST (SGOT) 32 U/L (14-36); Albumin 4.4 g/dl (3.5-5.0); Alkaline Phosphatase 52 U/L (38-126); Blood Urea Nitrogen 12 mg/dl (7-17); Calcium 9.4 mg/dl (8.4-10.2); Carbon Dioxide 29 mmol/L (22-30); Chloride 103 mmol/L (98-107); Glucose 81 mg/dl (70-99); Potassium 4.5 mmol/L (3.5-5.1); Sodium 137 mmol/L (135-145); Total Protein 7.5 g/dl (6.3-8.2); eGFR > 60.00
== END ==
LOC: REG 10:23
PROVIDERS: ATTENDING PHYSICIAN Internal Medicine Hematology & Oncology; FAMILY PHYSICIAN Family Medicine
DX: D69.3 Immune thrombocytopenic purpura (principal); R74.01 Elevation of levels of liver transaminase levels
CPT/HCPCS: 36415; 80053; 85025

== ENCOUNTER → 2025-11-19 08:52 | Outpatient (REF) | payer MEDICARE, BC, SELFPAY ==
[2025-11-19 10:26] LABS: Hematocrit 40.1 % (37.0-47.0); Hemoglobin 13.3 g/dL (12.0-16.0); Mean Corp Hgb Conc. 33.2 g/dL (33.0-37.0); Mean Corpuscular Volume 88.5 fL (81.0-99.0); Nucleated Red Blood Cells % 0 %; Platelet Count 130 10^3/uL (130-400); Red Cell Dist. Width 12.6 % (11.5-14.5)
[2025-11-19 10:51] LABS: ALT (SGPT) 22 U/L (0-35); AST (SGOT) 32 U/L (14-36); Albumin 4.0 g/dl (3.5-5.0); Alkaline Phosphatase 52 U/L (38-126); Blood Urea Nitrogen 15 mg/dl (7-17); Calcium 8.9 mg/dl (8.4-10.2); Carbon Dioxide 27 mmol/L (22-30); Chloride 104 mmol/L (98-107); Glucose 80 mg/dl (70-99); Potassium 4.5 mmol/L (3.5-5.1); Sodium 136 mmol/L (135-145); Total Protein 6.7 g/dl (6.3-8.2); eGFR > 60.00
== END ==
LOC: REG 08:52
PROVIDERS: ATTENDING PHYSICIAN Internal Medicine Hematology & Oncology; FAMILY PHYSICIAN Family Medicine
DX: D69.3 Immune thrombocytopenic purpura (principal); R74.01 Elevation of levels of liver transaminase levels
CPT/HCPCS: 36415; 80053; 85025